=== PATIENT | female | born 1985 | race Caucasian/White ===

== ENCOUNTER 2019-08-12 14:00 | Outpatient (RCR) | payer MEDICAID | END 2019-09-20 | disposition still patient (30) | LOC: MKS.ESL.PT | DX: H54.7 Unspecified visual loss (principal); J30.2 Other seasonal allergic rhinitis; M62.838 Other muscle spasm; F70 Mild intellectual disabilities; I10 Essential (primary) hypertension; E78.00 Pure hypercholesterolemia, unspecified; R26.81 Unsteadiness on feet ==